=== PATIENT | male | born 1960 | race Caucasian/White ===

== ENCOUNTER 2019-06-14 09:49 | Outpatient (CLI) | payer OTHER, SELFPAY ==
--- NOTE | ~2019-06-14 | XR_ITS ---
EXAMINATION: XR chest 2V DATE: 06/14/2019 10:08 INDICATION: Cough. TECHNIQUE: Frontal and lateral views of the chest were obtained. COMPARISON: None. FINDINGS: A calcified left lung nodule is consistent with old granulomatous disease. No pleural effus ion or pneumothorax. The heart size is normal. There are changes of anterior fusion procedure in cerv ical spine. IMPRESSION: 1. No acute cardiopulmonary disease. Reviewed, dictated and finalized at location A. IVIST POLITICAL HISTORY
== END 2019-06-14 09:50 | disposition home or self-care (01) ==
LOC: CHSIMG 09:51
PROVIDERS: PCP Internal Medicine; Visit Provider Internal Medicine
DX: R05 Cough (principal); R63.0 Anorexia; Z00.00 Encounter for general adult medical examination without abnormal findings
CPT/HCPCS: 71046

== ENCOUNTER 2019-12-01 07:50 | Outpatient (RCR) | payer OTHER, SELFPAY ==
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
--- NOTE | 2020-02-18 11:02 | PCPTNOTE ---
02/18/20 - patient has been called and reports they would like to end therapy. at this time, their progress towards goals will be taken from the most recent evaluation/note. KameronTF
== END 2019-12-01 15:24 | disposition home or self-care (01) ==
LOC: CHSPT 07:50
PROVIDERS: PCP Internal Medicine; Visit Provider Family Medicine
DX: M54.12 Radiculopathy, cervical region (principal); M54.16 Radiculopathy, lumbar region
CPT/HCPCS: 97014; 97110; 97161; G0283

== ENCOUNTER 2020-04-10 15:17 | Outpatient (CLI) | payer OTHER, SELFPAY ==
--- NOTE | ~2020-04-10 | XR_ITS ---
EXAMINATION:XR_CERV2-3V_CR DATE: 04/10/2020 15:39 INDICATION: Neck pain extending posteriorly to the upper back between the shoulders post fall one wee k prior TECHNIQUE: AP, lateral and open-mouth and submental odontoid views of the cervical spine are provided . COMPARISON: None FINDINGS: C5-C6 anterior spinal fusion with anterior plate and screw fixation. 2 mm retrolisthesis C3 on C4. Un fused vertebral body heights are normal. Moderate disc height loss at C3-C4 with mild left and modera te right uncovertebral osteoarthritis and at C6-C7 with severe bilateral uncovertebral osteoarthritis . Mild disc height loss and mild bilateral uncovertebral osteoarthritis at C4-C5. Multilevel mild too ateral cervical facet osteoarthritis. Odontoid is intact. Normal atlantoaxial interval. Prevertebra l soft tissues are normal. Visualized apices of the lungs are clear. IMPRESSION: 1. Moderate cervical spondylosis with internally fixed C5-C6 anterior spinal fusion. Reviewed, dictated and finalized at location A. MINE CUTTING MACHINE OPERATOR IMPRESSION: 1. Moderate cervical spondylosis with internally fixed C5-C6 anterior spinal fu vanna.
[2020-04-10 15:34] LABS: Basophils Absolute Auto 0.05 K/mm3 (0.00-0.10); Basophils Percent Auto 0.7 % (0.0-1.0); Eosinophils Absolute Auto 0.08 K/mm3 (0.02-0.50); Eosinophils Percent Auto 1.1 % (1.0-6.0); Hematocrit 43.3 % (40.0-54.0); Hemoglobin 14.4 g/dL (14.0-18.0); Immature Granulocyte Absolute 0.02 K/mm3 (0.00-0.00); Immature Granulocyte Percent A 0.3 % (0.0-0.0); Lymphocytes Absolute Auto 2.11 K/mm3 (1.10-4.50); Lymphocytes Percent Auto 28.1 % (18.0-42.0); Mean Corpuscular HGB Conc 33.3 g/dL (32.0-36.0); Mean Corpuscular Hemoglobin 31.2 pg (27.0-31.0); Mean Corpuscular Volume 93.7 fL (78.0-102.0); Mean Platelet Volume 10.7 fl (8.7-11.0); Monocytes Absolute Auto 0.45 K/mm3 (0.10-0.90); Neutrophils Absolute Auto 4.8 K/mm3 (1.7-7.2); Neutrophils Percent Auto 63.8 % (50.0-70.0); Platelet Count Result 230 K/mm3 (150-420); Red Blood Count 4.62 M/mm3 (4.70-6.10); Red Cell Distribution Width 12.3 % (11.6-14.4); White Blood Count 7.5 K/mm3 (4.8-10.8)
[2020-04-10 16:17] LABS: Alanine Aminotransferase 22 U/L (16-63); Albumin Level 4.1 g/dL (3.4-5.0); Alkaline Phosphatase 73 U/L (46-116); Anion Gap 6 mmol/L (8-16); Aspartate Amino Transferase 15 U/L (15-37); Bilirubin,Total 0.2 mg/dL (0.00-1.00); Blood Urea Nitrogen 17 mg/dL (7-18); Calcium 9.4 mg/dL (8.5-10.1); Carbon Dioxide 32 mmol/L (21-32); Chloride 106 mmol/L (98-108); Estimated Glomerular Filt Rate > 60; Glucose 96 mg/dL (70-99); Osmolality Calculated 299 mOsm/kg (285-295); Potassium 4.9 mmol/L (3.5-5.1); Sodium 144 mmol/L (136-145); Thyroid Stimulating Hormone 0.94 uIU/mL (0.36-3.74)
== END 2020-04-10 15:18 | disposition home or self-care (01) ==
LOC: CHSLAB 15:19
PROVIDERS: PCP Internal Medicine; Visit Provider Internal Medicine
DX: R55 Syncope and collapse (principal); R00.1 Bradycardia, unspecified; M54.2 Cervicalgia
CPT/HCPCS: 36415; 72040; 80053; 83880; 84443; 85025

== ENCOUNTER 2020-04-15 07:07 | Outpatient (CLI) | payer OTHER, SELFPAY ==
--- NOTE | ~2020-04-15 | MR_ITS ---
EXAMINATION: MR brain IAC wo con DATE: 04/15/2020 08:00 INDICATION: Head injury. TECHNIQUE: Magnetic resonance imaging (MRI) of the brain, brainstem, and internal auditory canals was performed without intravenous contrast. Sequences included sagittal and axial T1-weighted FSE, axial diffusion-weighted FS EPI, axial T2*-weighted GRE, axial T2-weighted FLAIR Propeller, axial T2-weigh josé Propeller, small qkjhg-fj-dvkv coronal FIESTA, small ljgak-ml-mmlc coronal T1-weighted FSE, and s mall zwmkr-ry-[id number] axial T1-weighted SPGR. Apparent diffusion coefficient (ADC) maps were created. COMPARISON: Head CT 10/22/2014 FINDINGS: There is a 15 mm calcified mass in medial left parietal lobe abutting the falx. It is not c lear if the mass is intra-axial or extra-axial. There are scattered areas of nonspecific increased T2 -weighted signal intensity in the cerebral white matter, which is within normal limits for the patien t's age. There is no acute ischemic infarct or intracranial hemorrhage. The ventricles are normal in size. The orbits are normal. There is mild mucosal thickening in the ethmoid sinuses. The mastoid air cells are normal. IMPRESSION: 1. 15 mm calcified mass in medial left parietal lobe, stable from 10/22/2014. The differential diagnos is includes meningioma, dystrophic calcification, and intra-axial neoplasm such as astrocytoma, oligo dendroglioma, or ganglioglioma. Brain MRI with contrast is recommended. Reviewed, dictated and finalized at location B. P PREPARER IMPRESSION: 1. 15 mm calcified mass in medial left parietal lobe, stable from 10/22/2014. Th e differential diagnosis includes meningioma, dystrophic calcification, and int ra-axial neoplasm such as astrocytoma, oligodendroglioma, or ganglioglioma. Bra in MRI with contrast is recommended.
== END 2020-04-15 07:08 | disposition home or self-care (01) ==
PROVIDERS: PCP Internal Medicine; Visit Provider Internal Medicine
DX: S09.90XA Unspecified injury of head, initial encounter (principal)
CPT/HCPCS: 70551

== ENCOUNTER 2020-04-24 17:16 | Outpatient (RCR) | payer OTHER, SELFPAY ==
--- NOTE | 2020-04-27 06:50 | PTOPEVAL ---
Thank you for referring Rubin Lamar to [facility].? The patient is scheduled to be seen for therapy? __3__x/week for 12 visits. Please review, sign, date and return this plan of care [facility]. I agree with and certify that the following plan of care is medically necessary. Referring Physician Date Admitting Provider: Attending Provider: Fransico Mattson MD Referring Provider: *PT Outpatient Evaluation Start: 04/24/20 17:17 Freq: Status: Active Protocol: Document 04/24/20 17:17 TRAY (Rec: 04/24/20 17:37 [facility] [id number]) Therapy Assessment Status Assessment Status Assessment Status Evaluation Evaluation Information Problem Diagnosis neck and bilateral shoulder pain Onset 04/05/20 Subjective Information Pt. reports that he fell while Query Text:As Reported By Patient/ on a ladder at work, striking Family his head on the floor. He was taken to the ER after the fall. He describes neck and shoulder pain since the fall. He states that the pain is constant. He describes most pain with neck movements in all planes. He staste that he cannot sleep through the night due to persistent neck pain. He states that he continues to work despite his discomfort. He reports that his goal is to reduce his neck pain. Pain Assessment Timing of Pain Assessment Timing of Pain Assessment Pre-Treatment Pain Scale Pain Scale Used Numeric (1 - 10) Self Report Pain Assessment Neck Reported Pain Level 4 Pain Description Aching Pain Radiation Left Shoulder,Right Shoulder Pain Frequency Continuous Pain Aggravating Factors Exercise/Activity,Prolonged Position Pain Score Pain Score 4: Self Report Interventions Used Interventions Used By Clinicians Electrical Stimulation, Exercise,Heat Cervical and Lumbar ROM Cervical ROM Cervical Flexion (0-60) 50 Query Text:Active in Degrees Cervical Extension (0-70) 45 Query Text:Active in Degrees Cervical Lateral Flexion Right (0-50) 35 Query Text:Active in Degrees Cervical Lateral Flexion Left (0-50) 35 Query Text:Active in Degrees Cervical Rotation Right (0-90) 58 Query Text:Active in Degrees
== END 2020-05-23 09:48 | disposition home or self-care (01) ==
LOC: CHSPT 17:16
PROVIDERS: PCP Internal Medicine; Visit Provider Internal Medicine
DX: M54.2 Cervicalgia (principal); M25.512 Pain in left shoulder; M25.511 Pain in right shoulder
CPT/HCPCS: 97014; 97110; 97140; 97161; G0283

== ENCOUNTER 2021-03-06 15:16 | Outpatient (CLI) | payer OTHER, SELFPAY ==
--- NOTE | ~2021-03-06 | XR_ITS ---
XR sinus min 3V 03/06/2021 15:38 Indication: Right cheek swelling. Procedure: 5 views of the sinuses Comparison: No prior studies for comparison. Findings: No significant opacification of the paranasal sinuses. No air-fluid levels. No significant nasal septal deviation. Mastoids appear pneumatized. Impression: 1: No significant abnormality of the sinuses identified. Reviewed, dictated and finalized at location A. Impression: 1: No significant abnormality of the sinuses identified.
== END 2021-03-06 15:17 | disposition home or self-care (01) ==
LOC: CHSLAB 15:20
PROVIDERS: PCP Internal Medicine; Visit Provider Internal Medicine
DX: M79.89 Other specified soft tissue disorders (principal)
CPT/HCPCS: 70220

== ENCOUNTER 2021-11-24 18:24 | Emergency (ER) | payer OTHER, SELFPAY ==
[2021-11-24 18:36] VITALS: BP 154/78; PULSE 67; RESP 18; TEMP 36.3; O2SAT 99
--- NOTE | 2021-11-24 18:40 | ED.DENTAL ---
HPI - Dental/Oral General Chief complaint: Dental/Oral Stated complaint: facial swelling Time Seen by Provider: 11/24/21 18:40 Source: patient History of Present Illness HPI Narrative: 61-year-old male, smoker presents to the ER with swelling of the right upper jaw. He has had this swelling for 1 month. He received amoxicillin with improvement of his symptoms. He is scheduled to see a ENT in December. He presents to the ER with pain and swelling arising from the upper jaw / mucosal surface of the cheek . Teeth map: 1. soft tissue swelling arising from the upper jaw. Onset (ago): month(s) ( present for 1 month) Duration: constant Exacerbating factors: nothing Treatment prior to arrival: none Related Data Allergies Allergy/AdvReac Type Severity Reaction Status Date / Time No Known Allergies Allergy Verified 11/24/21 18:36 Review of Systems Review of Systems: All systems reviewed & are unremarkable except as noted in HPI and below Constitutional: Constitutional: Reports as per HPI and Reports no additional constitutional complaints Eyes: Eyes: Reports as per HPI and Reports no additional eye complaints ENT: Reports system reviewed and no additional complaints, except as documented and Reports as per HPI Comments: soft tissue swelling arising from the right upper jaw Cardiovascular: Cardiovascular: Reports as per HPI Respiratory: Respiratory: Reports as per HPI and Reports no additional respiratory complaints Gastrointestinal: Gastrointestinal: Reports as per HPI and Reports no additional gastrointestinal complaints Genitourinary: Genitourinary: Reports no additional male genitourinary complaints and Reports as per HPI Musculoskeletal: Musculoskeletal: Reports no additional musculoskeletal complaints and Reports as per HPI Integumentary/Breasts: Skin/Breast: Reports system reviewed and no additional complaints, except as docu and Reports as per HPI Neurologic: Reports system reviewed and no additional complaints, except as documented and Reports as per HPI Psychiatric: Psychiatric: Reports no additional psychiatric complaints and Reports as per HPI Endocrine: Endocrine: Reports no additional endocrine complaints and Reports as per HPI Hematologic/Lymphatic: Hematologic/Lymphatic: Reports no additional hematologic/lymphatic complaints and Reports as per HPI Allergic/Immunologic: Allergic/Immunologic: Reports no additional allergic/immunologic complaints and Reports as per HPI [facility] Family History Family History Father Family history of respiratory disorder Cerebrovascular accident Acute myocardial infarction Other Diabetes mellitus Social History Social History Smoking status: Never smoker Alcohol intake: never Exam Const: General: no acute distress Nutritional Appearance: well nourished Orientation/consciousness: patient oriented x3 Limitations: no limitations HENMT: Head: normal to inspection Ears: external ears normal General nose exam: Normal external nose present Face and sinus: normal facial exam ( soft tissue swelling over zygomatic process) Mouth: Yes Normal oral and palatal mucosa present ( soft tissue swelling arising from the right upper jaw) Teeth and gingiva: abnormal tooth and associated gingiva Throat: posterior oropharynx normal Eyes: Conjunctivae: conjunctivae normal Pupils: Equal, round and reactive pupils present EOM: EOMs intact bilaterally Direct Ophthalmoscopy: no photophobia Neck: Neck: normal visual inspection, no lymphadenopathy and no meningeal signs Chest: Chest palpation & inspection: normal inspection of the chest Resp: Auscultation: clear to auscultation bilaterally Cardio: Rate: regular rate Rhythm: regular rhythm GI: Auscultation: normal bowel sounds Back/Spine/Pelvis: Back: no CVA tenderness Skin: General skin exam: normal c
[2021-11-24 19:04] VITALS: BP 144/74; PULSE 70; RESP 18; O2SAT 98
== END 2021-11-24 19:07 | disposition home or self-care (01) ==
PROVIDERS: Emergency Provider Internal Medicine Critical Care Medicine; PCP Internal Medicine
DX: K06.8 Other specified disorders of gingiva and edentulous alveolar ridge (principal)
CPT/HCPCS: 99283

== ENCOUNTER 2022-04-24 12:33 | Outpatient (CLI) | payer OTHER, SELFPAY ==
--- NOTE | ~2022-04-24 | CT_ITS ---
CT scan of the Neck Technique: 3 mm axial scans were obtained through the neck after intravenous administration of 75 cc Omnipaque 350. Coronal and sagittal reconstructions of the neck were obtained. Dose reduction techniq ue was used on this scan by utilizing automated exposure control and iterative reconstruction techniq ue. The dose-length product (DLP) was 428.07 mGy-cm. Clinical History: Right-sided facial abscess/cellulitis Findings: There is no evidence of any significant cervical lymphadenopathy. Several small, nonenlarged jugulo- digastric and posterior cervical lymph nodes are noted bilaterally. Parapharyngeal spaces appear norm al bilaterally. The parotid and submandibular glands appear normal. The pharyngeal mucosal spaces appear normal. No soft tissue masses are seen in the neck. The thyroid gland appears normal. Images of the lung apices reveal no abnormalities. Anterior cervica l fusion from C5 to C6 noted. Impression: No significant abnormalities noted. No abscess. Reviewed, dictated and finalized at location [] IFIED MEDICAL TRANSCRIPTIONIST Impression: No significant abnormalities noted. No abscess.
[2022-04-24 12:59] LABS: Estimated Glomerular Filt Rate > 60
== END 2022-04-24 12:34 | disposition home or self-care (01) ==
LOC: CHSIMG 12:34
PROVIDERS: PCP Internal Medicine; Visit Provider Otolaryngology
DX: L02.01 Cutaneous abscess of face (principal)
CPT/HCPCS: 70491; Q9967

== ENCOUNTER 2022-08-02 07:46 | Outpatient (CLI) | payer OTHER, SELFPAY ==
[2022-08-02 07:59] LABS: Appearance Urine Clear (Clear); Basophils Absolute Auto 0.03 K/mm3 (0.00-0.10); Basophils Percent Auto 0.5 % (0.0-1.0); Bilirubin Urine Negative (Negative); Blood Urine Negative (Negative); Color Urine Yellow (Yellow); Eosinophils Absolute Auto 0.12 K/mm3 (0.02-0.50); Eosinophils Percent Auto 2.2 % (1.0-6.0); Glucose Urine UA Negative (Negative); Hematocrit 41.3 % (40.0-54.0); Hemoglobin 13.8 g/dL (14.0-18.0); Immature Granulocyte Absolute 0.02 K/mm3 (0.00-0.00); Immature Granulocyte Percent A 0.4 % (0.0-0.0); Ketones Urine Negative (Negative); Leukocyte Esterase Ur Negative LEU/UL (Negative); Lymphocytes Absolute Auto 1.88 K/mm3 (1.10-4.50); Lymphocytes Percent Auto 33.8 % (18.0-42.0); Mean Corpuscular HGB Conc 33.4 g/dL (32.0-36.0); Mean Corpuscular Hemoglobin 30.6 pg (27.0-31.0); Mean Corpuscular Volume 91.6 fL (78.0-102.0); Mean Platelet Volume 10.6 fl (8.7-11.0); Monocytes Absolute Auto 0.39 K/mm3 (0.10-0.90); Neutrophils Absolute Auto 3.1 K/mm3 (1.7-7.2); Neutrophils Percent Auto 56.1 % (50.0-70.0); Nitrate Urine Negative (Negative); Platelet Count Result 212 K/mm3 (150-420); Protein Urine Negative (Negative); Red Blood Count 4.51 M/mm3 (4.70-6.10); Red Cell Distribution Width 12.7 % (11.6-14.4); Specific Grav Ur >= 1.030 (1.010-1.020); Urobilinogen Urine 0.2 mg/dL (0.2-1.0); White Blood Count 5.6 K/mm3 (4.8-10.8)
[2022-08-02 08:04] LABS: Add Urine Microscopic? NO
[2022-08-02 08:57] LABS: Alanine Aminotransferase 24 U/L (16-63); Albumin Level 3.5 g/dL (3.4-5.0); Alkaline Phosphatase 69 U/L (46-116); Anion Gap 5 mmol/L (8-16); Aspartate Amino Transferase 14 U/L (15-37); Bilirubin,Total 0.4 mg/dL (0.00-1.00); Blood Urea Nitrogen 24 mg/dL (7-18); Calcium 9.4 mg/dL (8.5-10.1); Carbon Dioxide 33 mmol/L (21-32); Chloride 108 mmol/L (98-108); Cholesterol 198 mg/dL (0-200); Estimated Glomerular Filt Rate > 60; Glucose 109 mg/dL (70-99); HDL Direct 47 mg/dL (40-60); LDL Cholesterol Calculated 142 mg/dL (<130); Osmolality Calculated 307 mOsm/kg (285-295); Prostate Specific Antigen 0.5 ng/mL (< OR = 4.0); Sodium 146 mmol/L (136-145); Thyroid Stimulating Hormone 1.01 uIU/mL (0.36-3.74); Total Protein 6.2 g/dL (6.4-8.2); Triglycerides 45 mg/dL (0-150)
[2022-08-02 11:56] LABS: Hemoglobin A1C 5.8 % (<5.7)
== END 2022-08-02 07:47 | disposition home or self-care (01) ==
LOC: CHSLAB 07:48
PROVIDERS: PCP Internal Medicine; Visit Provider Nurse Practitioner Family
DX: Z00.00 Encounter for general adult medical examination without abnormal findings (principal); M54.50 Low back pain, unspecified; E78.5 Hyperlipidemia, unspecified; R94.31 Abnormal electrocardiogram [ECG] [EKG]
CPT/HCPCS: 36415; 80053; 80061; 81003; 83036; 84153; 84439; 84443; 85025; G0103

== ENCOUNTER 2022-10-03 07:04 | Outpatient (CLI) | payer OTHER, SELFPAY ==
--- NOTE | ~2022-10-03 | XR_ITS ---
Right ankle Technique: AP, oblique, and lateral views were obtained. Clinical History: Pain Findings: No acute fracture or dislocation is seen. Osseous alignment is anatomic. Ankle mortise and other visualized joint spaces are preserved. There is bony excrescence of the distal fibula, which co uld reflect heterotopic ossification across the syndesmosis versus large osteochondroma. 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 MR would be able to elucidate these 2 etiologies, if indicated. No acute fracture or dislocation. Reviewed, dictated and finalized at location . 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 MR would be able to elucidate these 2 etiologies, if indicated. No acute fracture or dislocation.
== END 2022-10-03 07:05 | disposition home or self-care (01) ==
LOC: CHSIMG 07:06
PROVIDERS: PCP Internal Medicine; Visit Provider Internal Medicine
DX: M25.571 Pain in right ankle and joints of right foot (principal)
CPT/HCPCS: 73610

== ENCOUNTER 2022-10-05 06:40 | Outpatient (CLI) | payer OTHER, SELFPAY ==
--- NOTE | ~2022-10-05 | MR_ITS ---
EXAMINATION: MR ankle RT wo con DATE: 10/05/2022 09:16 INDICATION: Lateral right ankle pain TECHNIQUE: Magnetic resonance imaging (MRI) of the right ankle was performed without intravenous cont rast. Sequences included sagittal, coronal, and axial proton-density weighted fast spin echo without and with fat saturation. COMPARISON: Radiographs dated 10/03/2022 FINDINGS: Medial ankle ligaments: Deep deltoid ligament appears intact but with small enthesophytes along its medial malleolar origin w hich could be either degenerative or sequela of chronic sprain. There is attenuation of the anterior superficial deltoid ligament without significant surrounding edema suggesting sequela of chronic spra in. There are foci of susceptibility artifact along the medial margin of the medial malleolus with mi ld hypertrophic change at the medial malleolar insertion of the proximally thickened flexor retinacul um which suggests sequela of prior retinacular repair. Lateral ankle ligaments: The anterior and posterior inferior tibiofibular ligaments are normal. The anterior talofibular, calc aneofibular and posterior talofibular ligaments are normal. Tendons: Achilles tendon is normal. Mild tendinopathy and longitudinal split tearing of the the portion of the peroneus longus tendon beginning at the retromalleolar groove and extending to the level of the phil diana groove of the cuboid. Peroneus brevis tendon is normal. The tibialis anterior and extensor hallu cis longus and extensor digitorum longus tendons are normal. The tibialis posterior, flexor digitorum longus and flexor hallucis longus tendons are normal. Plantar fascia: Latter aponeurosis is normal. Bones/other: There is bridging heterotopic ossification extending across the distal aspect of the tibiofibular syn desmosis with a few tiny foci of susceptibility artifact along the lateral margin of the distal fibul a suggesting sequela of prior surgery, potentially either related to earlier fracture fixation for sy ndesmotic repair. Bone alignment is normal. No acute fracture. Mild osteoarthritis at the ankle joint . Fluid: Physiologic amount fluid in the joint spaces. IMPRESSION: 1. . Mild tendinopathy and longitudinal split tearing of the peroneus longus tendon. 2. 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 Correlate with clinica l/surgical history. 3. Additional postoperative changes at the medial malleolar insertion of the proximal thickened flexo r retinaculum suggesting sequela of prior retinacular repair. 4. Likely chronic at least partial tear of the anterior superficial deltoid ligament. 5. Mild right ankle osteoarthritis. No acute osseous abnormality. Reviewed, dictated and finalized at location A. IMPRESSION: 1. . Mild tendinopathy and longitudinal split tearing of the peroneus longus te ndon. 2. Solidly bridging heterotopic ossification extending across the distal tibiof ibular syndesmosis with adjacent postoperative changes suggesting sequela of pr ior trauma and surgery potentially either a since healed distal fibular fractur e or repair of a distal syndesmotic injury. Correlate with clinical/surgical hi story. 3. Additional postoperative changes at the medial malleolar insertion of the pr oximal thickened flexor retinaculum suggesting sequela of prior retinacular rep air. 4. Likely chronic at least partial tear of the anterior superficial deltoid lig ament. 5. Mild right ankle osteoarthritis. No acute osseous abnormality.
== END 2022-10-05 06:41 | disposition home or self-care (01) ==
LOC: CHSIMG 06:40
PROVIDERS: PCP Internal Medicine; Visit Provider Internal Medicine
DX: M25.571 Pain in right ankle and joints of right foot (principal); M77.51 Other enthesopathy of right foot and ankle; M89.9 Disorder of bone, unspecified; S93.411A Sprain of calcaneofibular ligament of right ankle, initial encounter; M19.071 Primary osteoarthritis, right ankle and foot
CPT/HCPCS: 73721

== ENCOUNTER 2023-01-31 08:31 | Outpatient (CLI) | payer OTHER, SELFPAY ==
[2023-01-31 09:09] LABS: Basophils Absolute Auto 0.05 K/mm3 (0.00-0.10); Basophils Percent Auto 0.9 % (0.0-1.0); Eosinophils Absolute Auto 0.12 K/mm3 (0.02-0.50); Hematocrit 41.8 % (40.0-54.0); Hemoglobin 13.9 g/dL (14.0-18.0); Immature Granulocyte Absolute 0.02 K/mm3 (0.00-0.00); Immature Granulocyte Percent A 0.3 % (0.0-0.0); Lymphocytes Absolute Auto 1.64 K/mm3 (1.10-4.50); Lymphocytes Percent Auto 27.9 % (18.0-42.0); Mean Corpuscular HGB Conc 33.3 g/dL (32.0-36.0); Mean Corpuscular Hemoglobin 30.5 pg (27.0-31.0); Mean Corpuscular Volume 91.9 fL (78.0-102.0); Mean Platelet Volume 11.5 fl (8.7-11.0); Monocytes Absolute Auto 0.45 K/mm3 (0.10-0.90); Monocytes Percent Auto 7.7 % (2.0-11.0); Neutrophils Absolute Auto 3.6 K/mm3 (1.7-7.2); Neutrophils Percent Auto 61.2 % (50.0-70.0); Platelet Count Result 218 K/mm3 (150-420); Red Blood Count 4.55 M/mm3 (4.70-6.10); Red Cell Distribution Width 13.4 % (11.6-14.4); White Blood Count 5.9 K/mm3 (4.8-10.8)
[2023-01-31 10:12] LABS: Alanine Aminotransferase 19 U/L (16-63); Albumin Level 3.7 g/dL (3.4-5.0); Alkaline Phosphatase 86 U/L (46-116); Anion Gap 9 mmol/L (8-16); Aspartate Amino Transferase 11 U/L (15-37); Bilirubin,Total 0.5 mg/dL (0.00-1.00); Blood Urea Nitrogen 18 mg/dL (7-18); Calcium 9.6 mg/dL (8.5-10.1); Carbon Dioxide 26 mmol/L (21-32); Chloride 108 mmol/L (98-108); Estimated Glomerular Filt Rate > 60; Glucose 98 mg/dL (70-99); Osmolality Calculated 297 mOsm/kg (285-295); Potassium 4.1 mmol/L (3.5-5.1); Sodium 143 mmol/L (136-145); Total Protein 6.4 g/dL (6.4-8.2)
[2023-01-31 10:30] LABS: Hemoglobin A1C 5.4 % (<5.7)
== END 2023-01-31 08:32 | disposition home or self-care (01) ==
LOC: CHSLAB 08:34
PROVIDERS: PCP Internal Medicine; Visit Provider Internal Medicine
DX: E87.0 Hyperosmolality and hypernatremia (principal); D64.9 Anemia, unspecified; R73.01 Impaired fasting glucose
CPT/HCPCS: 36415; 80053; 83036; 85025

== ENCOUNTER 2023-03-01 18:50 | Emergency (ER) | payer OTHER, SELFPAY ==
[2023-03-01 18:50] VITALS: BP 167/95; PULSE 66; RESP 12; TEMP 36.4; O2SAT 99
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
[2023-03-01] MEDS: TETRACAINE HCL 0.5% OPHTH SOLN 4 ML BTL 1 DROP LEFT EYE (19:06)
[2023-03-01] MEDS: FLUORESCEIN SOD 1 MG/STRIP LEFT EYE (19:06)
[2023-03-01] MEDS: ERYTHROMYCIN OPHTH OINTMENT 3.5 GM TUBE 1 APPLIC EACH EYE (19:35)
[2023-03-01 19:39] VITALS: BP 148/74; PULSE 61; RESP 16; TEMP 36.6; O2SAT 98
== END 2023-03-01 19:41 | disposition home or self-care (01) ==
PROVIDERS: Emergency Provider Internal Medicine Critical Care Medicine; PCP Internal Medicine
DX: H11.32 Conjunctival hemorrhage, left eye (principal); S05.92XA Unspecified injury of left eye and orbit, initial encounter; X58.XXXA Exposure to other specified factors, initial encounter
CPT/HCPCS: 99283; A9270

== ENCOUNTER 2024-11-30 10:47 | Outpatient (CLI) | payer BC, SELFPAY ==
--- NOTE | ~2024-11-30 | XR_ITS ---
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 No fracture or dislocation. Joint space narrowing, moore bchondral sclerosis, subchondral cyst formation and osteophyte formation, compatible with moderate os teoarthritis. Reviewed, dictated and finalized at location A.
--- OUTSIDE RECORDS SUMMARY | 2024-11-30 10:57 | XMS_ITS | Clinical Summary ---
Author Organization [facility] Address [address] [place] [address] Care Team Providers Care Cassandra Architect Name Role Phone Fransico Mattson MD Primary Care Provider [phone] Allergies Active Allergy Reactions Criticality Noted Date Comments Meloxicam Other (see comment) 04/20/2020 Stomach pain Pravastatin Other (see comment) 04/20/2020 Edema in legs Medications ibuprofen 200 MG tablet Take 200 mg by mouth 2 (two) times daily as needed for Pain. Active vitamin C 250 MG tablet Take 250 mg by mouth daily. Active Multiple Vitamin (MULTIVITAMIN ADULT OR) Take 1 tablet by mouth daily. Active Active Problems Problem Noted Date Diagnosed Date Syncope, unspecified syncope type 06/25/2020 History of seizure 06/25/2020 Abnormal EKG 06/25/2020 Social History Tobacco Use Types Packs/Day Years Used Date Smoking Tobacco: Former Cigarettes Smokeless Tobacco: Never Alcohol Use Standard Drinks/Week Comments Never 0 (1 standard drink = 0.6 oz pur e alcohol) AUDIT-C Answer Date Recorded Q1: How often do you have a drink containing alc ohol? Never 04/05/2020 Average Number of Drinks Not on file 020 Frequency of Binge Drinking Not on file 03/13 Sex and Gender Information Value Date Recorded Sex Assigned at Not on file Legal Sex Male 10:43 PM CDT Gender Identity Not on file Sexual Orientation Not on file Last Filed Vital Signs Vital Sign Reading Time Taken Comments Blood Pressure 136/77 06/07/2020 2:06 PM [employer] C[employer] Pulse 51 06/07/2020 2:05 PM [employer] Temperature 36.2 C (97.2 F) 04/05/2020 3:52 PM [employer] CUSTODIAN Respiratory Rate 20 06/07/2020 2:05 PM [employer] CUSTODIAN Oxygen Saturation 100% 06/07/2020 2:05 PM [employer]LO[employer]ANK CUSTODIAN Inhaled Oxygen Concentration - - Weight 72.8 kg (160 lb 6.4 oz) 06/07/2020 2:05 P M [employer] CUSTODIAN Height 162.6 cm (5' 4) 06/07/2020 2:05 PM [employer]LO[employer] CUSTODIAN Body Mass Index 27.53 06/07/2020 2:05 PM [employer]LO[employer]ANK CUSTODIAN Plan of Treatment Health Maintenance Due Date Last Done Comments Colorectal Cancer Screening Colonoscopy (10 Years) 1961 Annual Physical 1964 Hepatitis C 1979 DTaP, Tdap and Td Vaccines ( 1 - Tdap) 1980 Pneumococcal Vaccine: 50+ Ye ars (1 of 1 - PCV) 2011 Zoster Vaccines (1 of 2) 2011 COVID-19 Vaccine (1 - 2023-2 5 season) 2024 RSV Immunization or 60+ Years (1 - 1-dose 75+ series) 2036 Meningococcal B Vaccine Aged Out No l onger eligible based on patient's age to complete this topic Meningococcal Vaccine Aged Out No fallon zackary eligible based on patient's age to complete this topic RSV Immunizations Under 20 Months Aged Out No longer eligible based on patient's age to complete this topic Insurance [employer] Care Teams Cassandra Architect Relationship Specialty Start Date End Date Fransico Mattson MD [address] [place] [address] PCP - General INTERNAL MEDICINE 04/05/20
== END 2024-11-30 10:48 | disposition home or self-care (01) ==
PROVIDERS: PCP Internal Medicine; Visit Provider Internal Medicine
DX: M25.571 Pain in right ankle and joints of right foot (principal); M24.671 Ankylosis, right ankle
CPT/HCPCS: 73610; 73620